=== PATIENT | female | born 1955 | race Caucasian/White ===

== ENCOUNTER 2018-07-29 10:03 | Inpatient (IN) | payer OTHER ==
[~2018-07-29] VITALS: Ht 160 cm; Wt 78.9 kg
--- NOTE | ~2018-07-29 | HC ---
[facility] [place] [address] CONSULTATION Name: KALLIE MONZON Room #: 364-P [facility] IN .R.#: [id number] Admission: 07/29/18 Attend Phys: Daron Loving MD Discharge: 07/30/18 Date of : 51 Report #: [id number] THIS REPORT FOR: //name// CC: Manoj Loving HISTORY OF PRESENT ILLNESS: The patient is a 63-year-old white female with a history of a prior CVA approximately 2 years ago with some mild residual left-sided weakness. CVA was noted to involve in right frontal and cerebellar areas. She has been doing well, ambulatory without gait aids, minimal residual left-sided weakness when she was readmitted this time with diplopia and slurred speech. Seen by Neurology, diagnosed with a TIA. She notes the symptoms have basically resolved. MRA did show evidence of right carotid stenosis. MRI was negative for a new CVA. Recommendations for Vascular Surgery assessment. We are seeing her in rehabilitation medicine consultation. PAST MEDICAL HISTORY: Includes the prior CVA 2 years ago, there is a history of bipolar disorder, left wrist fracture, carpal tunnel syndrome involving the left wrist. She has had pneumonia. MEDICATIONS: Please see the full medication listing. ALLERGIES: LATEX. FAMILY HISTORY: Noncontributory. SOCIAL HISTORY: Lives in a town house with her boyfriend in one floor, both retired. She did not utilize gait aids. HABITS: Former smoker, tobacco 1.5 packs per day for 35 years, quit greater than a year ago. Alcohol only on special occasions. REVIEW OF SYSTEMS: No current complaints of chest pain, shortness of breath or abdominal discomfort. No visual or swallowing problems. No increased weakness or numbness. No pain complaints were noted. PHYSICAL EXAMINATION: GENERAL: She is a 63-year-old white female in no obvious distress. VITAL SIGNS: Last recorded temperature 97.6, pulse 77, respirations 18, blood pressure 108/70. She is alert, pleasant, oriented. HEENT: Appeared to be benign. NEUROLOGIC: Cranial nerves are grossly intact. Facies are symmetric. EXTREMITIES: She has functional range of motion of both upper extremities without obvious focal weakness. DTRs are 1. Lower extremities, no focal calf swelling, functional range of motion. She might have some slight decreased strength of the left upper and left lower extremity. I would grade it may be at 4-4- right upper and right lower extremity are more of a grade 4-4+. [place] [address] CONSULTATION Name: KALLIE MONZON Room #: 364-P [facility] IN [facility]#: [id number] Admission: 07/29/18 Attend Phys: Daron Loving MD Discharge: 07/30/18 Date of : 51 Report #: [id number]. ASSESSMENT: A 63-year-old white female with the following problem list: 1. Transient ischemic attack. 2. MRA showing significant stenosis, right internal carotid artery with suggestion of consultation with Vascular Surgery. 3. Prior cerebrovascular accident 2 years ago with some mild residual left-sided weakness. 4. History of tobacco abuse in the past. 5. Hypertension. 6. Hyperlipidemia. 7. Bipolar disorder. PLAN: Therapy evaluations are underway. Would anticipate the patient will likely be too high level to warrant an acute [address] [place] [address] inpatient rehabilitation stay, but we will follow along and see how she does in therapies. Thank you for asking us to assist in this patient's care. By: 1417 0038 Lm Saunders MD /nt
[~2018-07-29 10:03] MED LIST: ASPIRIN325 PO; COLACE100 MG PO; HYDROXYZINE HCL10 M1 PO; LIPITOR 20 MG T20 M1 PO; OXCARBAZEPINE150 MG PO; OXCARBAZEPINE600 MG PO; PAROXETINE HCL20 MG PO; SEROQUEL 25 MG25 M1 PO; TRAMADOL 50 MG50 MG; VENTOLIN HFA 1818 GM INH
[2018-07-29 10:09] VITALS: BP 130/92
[2018-07-29 10:50] LABS: APTT 28.2 Seconds (24.5-32.8)
[2018-07-29 11:02] LABS: BE(vivo) 1.4 mmol/L (-2 to +3); HCO3 25.3 mmol/L (22.0-26.0); PCO2 37.6 mmHg (35.0-45.0); PO2 99.9 mmHg (80.0-100.0); pH 7.446 (7.360-7.450); sO2 97.8 % (92.0-98.0)
[2018-07-29 11:18] LABS: URINE BILIRUBIN NEGATIVE (Negative); URINE BLOOD NEGATIVE (Negative); URINE CLARITY CLOUDY; URINE COLOR YELLOW; URINE GLUCOSE-RANDOM* NEGATIVE (Negative); URINE KETONES NEGATIVE (Negative); URINE LEUKOCYTES 1+ (Negative); URINE NITRITE NEGATIVE (Negative); URINE PROTEIN (DIPSTICK) NEGATIVE (Negative); URINE UROBILINOGEN 0.2 E.U./dl (0.2-1.0)
[2018-07-29 11:42] LABS: SQUAMOUS >10 Many /LPF (0-3)
[2018-07-29 11:43] LABS: CASTS None Seen /LPF (None Seen); URINE RBC 0-2 Rare /HPF (0-2); URINE WBC 6-15 Few /HPF (0-5)
[2018-07-29] MEDS ORDERED: ACETAMINOPHEN-1 EAC1 PO (11:43)
[2018-07-29 11:44] LABS: AMORPHOUS PHOSPHATES Moderate /LPF (None Seen)
[2018-07-29] MEDS ORDERED: IPRAT-ALBUT 0.5-3 ML INH (11:44)
[2018-07-29] MEDS ORDERED: CLONAZEPAM 0.50.5 M1 PO (11:44)
[2018-07-29] MEDS ORDERED: CELEBREX100 MG/1 C PO (11:44)
[2018-07-29] MEDS ORDERED: ASPIR 8181 MG PO (11:44)
[2018-07-29] MEDS ORDERED: LINZESS290 MCG PO (11:45)
[2018-07-29] MEDS ORDERED: LIPITOR 20 MG T20 M1 PO (11:45)
[2018-07-29] MEDS ORDERED: LOPRESSOR25 PO (11:45)
[2018-07-29] MEDS ORDERED: FLEXERIL PO (11:45)
[2018-07-29] MEDS ORDERED: PAXIL10 MG PO (11:46)
[2018-07-29] MEDS ORDERED: QUETIAPINE FUM100 MG PO (11:46)
[2018-07-29] MEDS ORDERED: OXCARBAZEPINE600 MG PO (11:46)
[2018-07-29 12:30] VITALS: BP 134/77
[2018-07-29 14:27] VITALS: BP 136/81
[2018-07-29] MEDS ORDERED: OXCARBAZEPINE300 MG PO (14:53)
[2018-07-29 14:54] VITALS: BP 155/88
--- NOTE | 2018-07-29 17:15 | EKG ---
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 [employer]: abilio : 1955 Requested By: Weston Lino Order Number: [id number] MD: Dilan Rios Measurements Intervals Damar Rate: 85 P: 45 AR: 150 QRS: -8 QRSD: 95 T: 15 QT: 366 QTc: 436 Interpretive Statements Sinus rhythm Low voltage, precordial leads Borderline T wave abnormalities Compared to ECG 04/24/2015 09:46:36 Low QRS voltage now present T-wave abnormality now present ST (T wave) deviation no longer present Electronically Signed On 07-29-2018 17:14:47 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
[2018-07-29 17:41] LABS: HEMATOCRIT 39.2 % (37.0-47.0); HEMOGLOBIN 13.9 gm/dL (12.0-15.0); MCHC 35.5 g/dL (28.0-37.0); MCV 90.1 fL (80.0-100.0); RBC 4.35 mil/uL (4.20-5.00); RDW 14.6 % (10.5-14.5); WBC 5.9 thou/uL (4.0-11.0)
[2018-07-29 18:22] LABS: TSH 0.921 uIU/mL (0.358-3.740)
[2018-07-29 18:31] LABS: CHOLESTEROL 178 mg/dL (<200); HDL CHOLESTEROL 89 mg/dL (>40); LDL CHOLESTEROL 79 mg/dL (<100); TRIGLYCERIDE 54 mg/dL (<150); VLDL 11 mg/dL (<40)
[2018-07-29 18:50] LABS: FOLIC ACID 44.1 ng/mL (8.6-58.9)
[2018-07-29 20:00] VITALS: BP 129/77
--- NOTE | 2018-07-29 20:16 | NUR ---
Assumed care of patient when arrived from ER this afternoon. Patient is alert to person, place, situation; knows the month is July and who the president is, but cannot recall the year. Follows commands. Pleasant. Denies pain. NIH completed on admission. Patient reports some right eye blurry vision, very slight slurred speech - more slow to respond. Patient with some mild aphasia, states feels like it takes her awhile to find the right words. Patient also reports some dizziness / light headedness, mainly with movement, but improved since admission to hospital. Significant other at bedside. Admission history, assessment, and education completed. IVF infusing per orders. Physicians rounded and home meds reordered per docs. Fall precautions in place. Patient instructed to call for assistance. Consents signed. Will continue to monitor.
[2018-07-29 23:33] VITALS: BP 95/68
[2018-07-30 04:08] LABS: GLYCOHEMOGLOBIN (HGB A1C) 5.5 % (4.8-5.6)
[2018-07-30 04:31] VITALS: BP 109/67
--- NOTE | 2018-07-30 05:23 | NUR ---
ASSUMED PT CARE AROUND 1900. A&OX4. DENIES ANY PAIN. PT SLEPT MOST OF THE NIGHT. RESP EVEN AND UNLABROED. VSS. AFEBRILE. IVF INFUSING ORDERED. UP W/ SBA TO BTR. STEADY GAIT. PT HAS SOME RESIUAL LT LEG WEAKNESS, WHICH SHE STATES IS FROM PREVIOUS CVA. PROGRESSING TOWARD POC GOALS. WILL CONTINUE TO MONITOR FURTHER.
[2018-07-30 07:08] VITALS: BP 135/84
--- NOTE | 2018-07-30 10:41 | 2DMMODE ---
[facility] [address] [place] [address] 2 D/M-MODE ECHOCARDIOGRAM Name: KALLIE MONZON Room #: 364-P ADM IN M.R.#: [id number] Admission: 07/29/18 Attend Phys: Daron Loving Discharge: Date of : 51 Date of Service: 07/30/18 1041 Report #: [id number] THIS REPORT FOR: //name// APPROVED REPORT Study performed: 07/30/2018 09:43:38 EXAM: Comprehensive 2D, Doppler, and color-flow Echocardiogram Patient Location: Echo lab Room #: 364 Status: routine BSA: 1.82 HR: 86 bpm BP: 135/84 mmHg Rhythm: NSR Other Information Study Quality: Good Indications TIA. Hx: CVA, HLP 2D Dimensions RVDd: 28.77 mm IVSd: 9.19 (7-11mm) LVOT Diam: 20.57 (18-24mm) LVDd: 43.11 mm PWd: 9.16 (7-11mm) Ascending Ao: 28.48 (22-36mm) LVDs: 31.33 (25-40mm) Aortic Root: 26.51 mm Volumes Left Atrial Volume (Systole) Single Plane 4CH: 55.79 mL Single Plane 2CH: 53.33 mL LA ESV Index: 32.00 mL/m2 Aortic Valve AoV Peak Sergio.: 1.40 m/s AO Peak Gr.: 7.82 mmHg LVOT Max P.97 mmHg LVOT Max V: 1.00 m/s JORDAN Vmax: 2.37 cm2 Mitral Valve E/A Ratio: 0.8 MV Decel. Time: 187.18 ms MV E Max Sergio.: 0.85 m/s [facility] [address] [place] [address] 2 D/M-MODE ECHOCARDIOGRAM Name: NICOLÁSKALLIE Room #: 364-P [facility] IN .R.#: [id number] Admission: 07/29/18 Attend Phys: Daron Loving Discharge: Date of : 51 Date of Service: 07/30/18 1041 Report #: [id number] MV A Sergio.: 1.07 m/s MV PHT: 54.28 ms IVRT: 93.43 ms Pulmonary Valve PV Peak Sergio.: 0.90 m/s PV Peak Gr.: 3.21 mmHg Pulmonary Vein P Vein S: 0.55 m/s P Vein A: 0.28 m/s P Vein D: 0.30 m/s P Vein A Dur.: 90.0 msec P Vein S/D Ratio: 1.83 Tricuspid Valve TR Peak Sergio.: 2.30 m/s RAP Estimate: 5.00 mmHg TR Peak Gr.: 21.20 mmHg PA Pressure: 26.00 mmHg Left Ventricle The left ventricle is normal size. There is normal LV segmental wall motion. There is normal left ventricular wall thickness. Left ventricular systolic function is normal. LVEF is 50-55%. Mild diastolic dysfunction is present (impaired relaxation pattern). Right Ventricle The right ventricle is normal size. The right ventricular systolic function is normal. Atria The left atrium size is normal. No shunting noted by contrast bubble injection. The right atrium size is normal. Aortic Valve The aortic valve is normal in structure. No aortic regurgitation is present. There is no aortic valvular stenosis. Mitral Valve The mitral valve is normal in structure. Mild to moderate mitral regurgitation with eccentric jet. No evidence of mitral valve stenosis. Tricuspid Valve The tricuspid valve is normal in structure. Mild tricuspid regurgitation. Estimated PAP is 25mmHg. Pulmonic Valve [address] [address] 2 D/M-MODE ECHOCARDIOGRAM Name: KALLIE MONZON Room #: 364-P [facility] IN M.R.#: [id number] Admission: 07/29/18 Attend Phys: Daron Loving Discharge: Date of : 51 Date of Service: 07/30/18 1041 Report #: [id number] Pulmonic valve is not well visualized. Great Vessels The aortic root is normal in size. The ascending aorta is normal in size. IVC is normal in size and collapses >50% with inspiration. Pericardium There is no pericardial effusion. <Conclusion> The left ventricle is normal size. LVEF is 50-55%. The aortic valve is normal in structure. The mitral valve is normal in structure. Mild to moderate mitral regurgitation with eccentric jet. The tricuspid valve is normal in structure. Mild tricuspid regurgitation. Estimated PAP is 25mmHg. Pulmonic valve is not well visualized. There is no pericardial effusion. <ELECTRONICALLY SIGNED> By: Andi Cuenca MD 07/30/18 1041 1041 104 Andi Cuenca MD /INF
[2018-07-30 10:58] VITALS: BP 108/70
--- NOTE | 2018-07-30 14:04 | NUR ---
This RN has reviewed and agrees with the charting and assessments completed by Kavita Willett.
--- NOTE | 2018-07-30 14:20 | NUR ---
ORDERS RECEIVED FOR EVAL AND TREAT. Pt HAD JUST COMPLETED O.T. EVAL AND WALKED TO THE BATHROOM WITHOUT DIFFICULTY. Pt STATES SHE FEELS SHE IS AT BASELINE AND EVERYTHING HAS RESOLVED. STATES SHE IS HAVING NO DIFFICULTY WITH HER MOBILITY AND DECLINING ANOTHER THERAPY EVAL.
--- NOTE | 2018-07-30 14:46 | NUR ---
INITIAL ASSESSMENT: HARVEY reviewed chart and spoke with nursing and attending physician. Pt was admitted from home due to possible TIA. MRI was negative. Therapy ordered to evaluate pt. 5N rehab physician consulted. SW attempted to meet with pt at bedside. Pt was working with therapy during time of visit. Per chart, pt is alert/orientated x 4. Prior to admission, pt was independent with ADLs. No use of DME. Anticipate pt will be able to discharge home when medically stable. HARVEY will follow up with pt prior to discharge. SW is following to assist as needed with discharge planning.
--- NOTE | 2018-07-30 16:21 | NUR ---
care of pt assumed this am @ ~0700. pt verbalized that she was back to her baseline early this am and also confirmed by her so who has been at bs most of the day. pt ivf's dc early this am due to pt consuming po fluids w/o any problems. pt w/ a good appetite for food and fluid. pt up ad rosina w/ a steady, balanced and coordinated gait, fall precaution status dc'd. pt received an echo today. also two consults (vascular surgeon & neurology). orders to dc pt received late this afternoon. pt verbalized her excitement to go home today. iv access dc'd. tele dc'd.
[2018-07-30 16:42] VITALS: BP 108/70
[2018-07-30 17:51] VITALS: BP 108/70
[2018-07-30 20:04] VITALS: BP 108/70
== END 2018-07-30 18:48 | disposition home or self-care (01) | DRG 68 ==
LOC: ER 10:03 → 3W 11:18 → EROBS 11:18 → 3W 14:32 → ENTRNSPT 07-30 18:28 → 3W 07-30 18:48
PROVIDERS: Emergency Medicine; ADMIT Internal Medicine
DX: I65.21 Occlusion and stenosis of right carotid artery (principal); I69.354 Hemiplegia and hemiparesis following cerebral infarction affecting left non-dominant side; F31.9 Bipolar disorder, unspecified; R56.9 Unspecified convulsions; I10 Essential (primary) hypertension; E78.5 Hyperlipidemia, unspecified; Z87.01 Personal history of pneumonia (recurrent); Z87.891 Personal history of nicotine dependence; Z87.81 Personal history of (healed) traumatic fracture; Z79.82 Long term (current) use of aspirin; Z79.899 Other long term (current) drug therapy; Z91.040 Latex allergy status; Z82.3 Family history of stroke; Z80.8 Family history of malignant neoplasm of other organs or systems
CPT/HCPCS: 10879